=== PATIENT | female | born 1945 | race Caucasian/White ===

== ENCOUNTER → 2018-01-03 | Outpatient (CLI) | payer OTHER | END | disposition home or self-care (01) | LOC: C.PATHSPEC 17:02 | PROVIDERS: ATTEND Urology | DX: N39.0 Urinary tract infection, site not specified (principal); R32 Unspecified urinary incontinence; R31.0 Gross hematuria ==

== ENCOUNTER → 2018-01-31 | Outpatient (CLI) | payer OTHER ==
[~2018-01-31] MED LIST: OPTIRAY 320 IV PRN
--- NOTE | 2018-01-31 12:21 | DIAGNOSTIC IMAGING REPORT ---
ABDOMEN AND PELVIS CT WITH AND WITHOUT IV CONTRAST, UROGRAM PROTOCOL CT DOSE: 1868.40 mGycm HISTORY: N39.0 UTI (urinary tract infection)R32 [id number] Gross hematuria TECHNIQUE: Multiaxial CT images of the abdomen and pelvis were performed both before and after the use of intravenous contrast to evaluate the urinary system. Maximal intensity projection images were performed at the workstation by the radiologist. A dose lowering technique was utilized adhering to the principles of ALARA. COMPARISON STUDY: Renal ultrasound 11/25/2017. FINDINGS: No renal or ureteral calculi. No hydronephrosis. No suspicious filling defects seen within the opacified bilateral renal collecting systems, ureters, or bladder. A 1.4 cm left parapelvic renal cyst. The kidneys enhance normally. Mild bladder wall thickening and adjacent fat stranding at the anterior aspect of the bladder and bladder dome. Of note, the anterior bladder is not opacified which results in suboptimal evaluation for a bladder mass at this location. Small fat-containing bilateral inguinal hernias. Hysterectomy. Tiny hiatus hernia. Small diverticulum at the second portion of the duodenum. Hepatic steatosis. No hepatic or splenic masses. Cholecystectomy. The pancreas and right gland are unremarkable. An 11 mm indeterminate left adrenal gland nodule. No retroperitoneal lymphadenopathy. Colonic diverticulosis. No bowel wall thickening or obstruction. The appendix is not identified and likely surgically absent. IMPRESSION: 1. No renal or ureteral stones. No hydronephrosis. 2. No suspicious filling defects seen within the opacified bilateral renal collecting systems, ureters, or bladder. 3. Mild bladder wall thickening and adjacent fat stranding at the anterior aspect of the bladder and bladder dome. This could be due to underdistention or a cystitis. Recommend correlation with urinalysis. Of note, the anterior bladder is not opacified which results in suboptimal evaluation for a bladder mass at this location. 4. Additional findings as described above. Electronically signed by: José Miguel Van M.D. 01/31/2018 12:19 PM Dictated Date/Time: 01/31/2018 12:09 PM
== END | disposition home or self-care (01) ==
LOC: C.CTS 11:17
PROVIDERS: ATTEND Urology
DX: N39.0 Urinary tract infection, site not specified (principal); R31.0 Gross hematuria; R32 Unspecified urinary incontinence